=== PATIENT | male | born 1985 | race Caucasian/White ===

== ENCOUNTER 2016-06-19 10:20 | Emergency (ER) | payer MEDICAID, SELFPAY ==
[~2016-06-19 10:20] MED LIST: ALPRAZOLAM1 M3 PO; ATIVAN1 M2 PO; LAMICTAL25 M2 PO; PAXIL20 M1 PO; XANAX1 M1 PO; ZITHROMAX500 M2 PO
[2016-06-19] MEDS ORDERED: ALPRAZOLAM ER1 M1 PO (11:10)
[2016-06-19 11:27] LABS: BASO % 0.4 % (0-2); BASO ABSOLUTE COUNT 0.1 tho/cmm (0.0-0.2); EOS % 0.5 % (0-7); EOSINOPHIL ABSOLUTE COUNT 0.1 tho/cmm (0.0-0.7); HCT-HEMATOCRIT 49.2 % (36.0-53.5); IMMATURE GRANULOCYTES ABSOLUTE 0.04 tho/cmm (0-0.03); IMMATURE GRANULOCYTES PERCENT 0.3 % (0-0.3); LYMPH % 21.2 % (20-45); LYMPH ABSOLUTE COUNT 2.8 tho/cmm (0.8-4.5); MCH (MEAN CORPUSCULAR HGB) 32.7 pg (28.0-32.0); MCHC MEAN CORPUSCULAR HGB CONC 34.6 % (32.0-36.0); MCV (MEAN CELL VOLUME) 94.6 fl (82.0-96.0); MEAN PLATELET VOLUME 9.2 cmc (9.4-12.4); MONO % 6.5 % (0-12); MONOCYTE ABSOLUTE COUNT 0.9 tho/cmm (0.0-1.2); NEUTROPHIL ABSOLUTE COUNT 9.3 tho/cmm (1.6-8.0); NEUTROPHIL-AUTOMATED 9.3 tho/cmm (1.6-8.0); NEUTROPHILS % 71.1 % (40-80); PLATELET COUNT 194 tho/cmm (150-450); RED CELL DISTRIBUTION WIDTH 13.5 % (12.4-16.4)
[2016-06-19 11:44] LABS: ALB/GLOB RATIO 1.1 (0.8-2.0); ALKALINE PHOSPHATASE 51 U/L (33-138); ALT/SGPT 24 U/L (12-78); ANION GAP 12 mmol/L (0-20); AST/SGOT 20 U/L (10-40); BILIRUBIN,TOTAL 0.6 mg/dl (0.0-1.5); BLOOD UREA NITROGEN 7 mg/dl (6-24); CALCIUM 9.2 mg/dl (8.5-10.5); CARBON DIOXIDE-VENOUS 30 mmol/L (22-32); CHLORIDE 104 mmol/l (96-110); GLUCOSE 111 mg/dL (70-110); LIPASE 98 U/L (73-393); SODIUM 142 mmol/L (135-145); eGFR VALUE FOR BLACK >90 mL/Min
[2016-06-19] MEDS ORDERED: PAXIL20 M1 PO (12:41)
[2016-06-19] MEDS ORDERED: LAMICTAL25 M2 PO (12:41)
== END 2016-06-19 12:45 ==
LOC: EDMED 10:20
PROVIDERS: Emergency Medicine
DX: R10.9 Unspecified abdominal pain (principal); R11.2 Nausea with vomiting, unspecified; F41.9 Anxiety disorder, unspecified; F32.9 Major depressive disorder, single episode, unspecified; Z90.49 Acquired absence of other specified parts of digestive tract; F17.200 Nicotine dependence, unspecified, uncomplicated; Z79.899 Other long term (current) drug therapy